=== PATIENT | male | born 1985 | race Caucasian/White ===

== ENCOUNTER 2021-12-20 07:56 | Emergency (ER) | payer BC ==
[2021-12-20 08:14] VITALS: BP 161/100; PULSE 100; RESP 20; TEMP 98.1
--- NOTE | 2021-12-20 08:31 | ED ---
General Adult HPI - General Chief complaint: ENT Stated complaint: Sore DARIA Ramirez Time Seen by Provider: 12/20/21 08:14 Source: patient Mode of arrival: ambulatory Limitations: no limitations - History of Present Illness Initial comments: Dictation was produced using [employer] dictation software. please excuse any grammatical, word or spelling errors. Chief Complaint: 36-year-old male presents emergency department for sore throat History of Present Illness: Patient is 28-year-old male who presents to the emergency department for sore throat since the last 24 hours. He is diagnosed with Jerson 2 days ago at an urgent care. He's been symptomatic for 4 days. Will of this morning felt like his throat was more sore than usual. His congestion improved. Patient reports that his throat feels like when he had his tonsils removed. Denies any difficulty breathing. Patient thought that perhaps coughing would help improve his symptoms. The ROS documented in this emergency department record has been reviewed and confirmed by me. Those systems with pertinent positive or negative responses have been documented in the HPI. All other systems are other negative and/or noncontributory. PHYSICAL EXAM: General Impression: Alert and oriented x3, not in acute distress, normal phone he HEENT: Normocephalic atraumatic, extra-ocular movements intact, pupils equal and reactive to light bilaterally, mucous membranes moist. Oropharynx: Mildly erythematous with some ulcerative lesions, no exudates Cardiovascular: Heart regular rate and rhythm Chest: Able to complete full sentences, no retractions, no tachypnea Musculoskeletal: Pulses present and equal in all extremities, no peripheral edema Motor: no focal deficits noted Neurological: CN II-XII grossly intact, no focal motor or sensory deficits noted Psych: Normal affect and mood ED course: 36-year-old male presents to the emergency department for sore throat. Patient has been symptomatic for Covid for the last 4 days he tested +2 days ago.. Vital signs upon arrival are within acceptable limits. Patient is well-appearing. He has a normal voice. No signs respiratory distress or drooling. Rapid strep is negative. Pending the cultures. Patient given 10 mg IM Decadron. Patient stable for discharge. Return parameters discussed. - Related Data Home Medications Medication Instructions Recorded Confirmed Ibuprofen [Motrin] 800 mg PO TID PRN 09/28/16 12/20/21 Losartan Potassium [Cozaar] 100 mg PO DAILY 12/20/21 12/20/21 Allergies Allergy/AdvReac Type Severity Reaction Status Date / Time No Known Allergies Allergy Verified 12/20/21 08:28 Review of Systems ROS Statement: Those systems with pertinent positive or pertinent negative responses have been documented in the HPI. ROS Other: All systems not noted in ROS Statement are negative. Past Medical History Past Medical History: GERD/Reflux, Hypertension Additional Past Medical History / Comment(s): Hx of proctitis., Occasional dysphagia, recent sleep study-no results yet., pt stopped BP medication 1 month ago did not like the way it made him feel-he will notify Dr Wright today. History of Any Multi-Drug Resistant Organisms: None Reported Past Surgical History: Tonsillectomy Additional Past Surgical History / Comment(s): colonoscopy, EGD Past Anesthesia/Blood Transfusion Reactions: No Reported Reaction, Motion Sickness Past Psychological History: No Psychological Hx Reported Smoking Status: Never smoker Past Alcohol Use History: Rare Past Drug Use History: None Reported - Past Family History Mother Family Medical History: No Reported History General Exam Limitations: no limitations Course Vital Signs 12/20/21 08:10 Temperature 98.1 F Pulse Rate 100 Respiratory 20 Rate Blood Pressure 161/100 O2 Sat by Pulse 99 Oximetry Medical Decision Making - Lab Data Lab Results 12/20/21 Range/Units 08:31 Group A Strep Rapid Negative (Negative) Disposition Clinical Impression: Viral pharyngitis Disposition: HOME SELF-CARE Condition: Good Instructions (If sedation given, give patient instructions): Strep Throat (ED) Is patient prescribed a controlled substance at d/c from ED?: No Referrals: Kenrick Wright DO [Primary Care Provider] - 1-2 days
[2021-12-20] MEDS ORDERED: DEXAMETHASONE SOD PHOSPHATE 10 MG/ML 1 ML VIAL IM STA (09:03)
== END 2021-12-20 09:11 | disposition home or self-care (01) ==
LOC: EC 07:56
DX: J02.8 Acute pharyngitis due to other specified organisms (principal); I10 Essential (primary) hypertension; K21.9 Gastro-esophageal reflux disease without esophagitis
CPT/HCPCS: 99283; 96372; 87081; 87430; J1100

== ENCOUNTER → 2022-05-05 | Outpatient (CLI) | payer BC ==
[2022-05-05 15:31] LABS: ALT 36 U/L (10-49); AST 29 U/L (14-35); Albumin 4.4 g/dL (3.8-4.9); Albumin/Globulin Ratio 1.49 (1.60-3.17); Alkaline Phosphatase 64 U/L (41-126); Bilirubin, Conjugated <0.20 mg/dL (0.20-0.40); Blood Urea Nitrogen 19.7 mg/dL (9.0-27.0); C Reactive Protein <0.30 mg/dL (0.00-0.80); Globulin 2.9 g/dL (1.6-3.3); Non-African American GFR(CKD) 81.1 (60.0-200.0); Total Protein 7.3 g/dL (6.2-8.2)
[2022-05-05 15:49] LABS: Basophils # (A) 0.04 X 10*3/uL (0.00-0.10); Basophils % (A) 0.7 %; Eosinophils # (A) 0.13 X 10*3/uL (0.04-0.35); Eosinophils % (A) 2.1 %; HCT 46.2 % (39.6-50.0); HGB 14.8 g/dL (13.0-17.0); Immature Grans, Automated 0.7 %; Lymphocytes # (A) 1.88 X 10*3/uL (0.90-5.00); MCH 28.8 pg (27.0-32.0); MCV 90.1 fL (80.0-97.0); Mean Platelet Volume 9.1 fL (9.5-12.2); Monocytes # (A) 0.75 X 10*3/uL (0.20-1.00); Monocytes % (A) 12.4 %; NRBC Per 100 WBC 0 /100 WBCS (0.0-0.0); Neutrophils # (A) 3.22 X 10*3/uL (1.80-7.70); Neutrophils % (A) 53.1 %; Platelet Count 250 X 10*3/uL (140-440); RBC 5.13 X 10*6/uL (4.40-5.60); RDW 13.7 % (11.5-14.5); WBC 6.06 X 10*3/uL (4.50-10.00)
== END | disposition home or self-care (01) ==
LOC: LABWHC1 09:23
PROVIDERS: ATTEND Internal Medicine Gastroenterology
DX: K63.89 Other specified diseases of intestine (principal)
CPT/HCPCS: 36415; 80076; 82565; 84520; 85025; 86140

== ENCOUNTER → 2024-10-08 | Outpatient (CLI) | payer BC | END | disposition home or self-care (01) | LOC: LABWHC1 08:57 | PROVIDERS: ATTEND Internal Medicine Gastroenterology | DX: K51.20 Ulcerative (chronic) proctitis without complications (principal); K21.9 Gastro-esophageal reflux disease without esophagitis; R14.0 Abdominal distension (gaseous) | CPT/HCPCS: 36415; 82784; 83516 ==